=== PATIENT | female | born 2000 | race Two or more races ===

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

== ENCOUNTER 2023-06-26 17:05 | Emergency (ER) | payer SELFPAY ==
[~2023-06-26] VITALS: Ht 157.5 cm; Wt 74.2 kg
[2023-06-26 17:13] VITALS: TEMP 98.6
[2023-06-26 17:19] VITALS: BP 114/76; PULSE 76; RESP 16; O2SAT 99
[2023-06-26] MEDS: ONDANSETRON ODT 4 MG TAB PO ONE (18:26)
[2023-06-26] MEDS ORDERED: AMOX500C2 PO (20:09)
[2023-06-26] MEDS ORDERED: BENZLOZ2 MT (20:09)
[2023-06-26] MEDS ORDERED: ZOFR4T PO (20:09)
[2023-06-26] MEDS ORDERED: IBUP1TAB5 PO (20:09)
[2023-06-26] MEDS: IBUPROFEN 600 MG TAB PO ONE (20:42)
== END 2023-06-26 20:45 | disposition home or self-care (01) ==
LOC: ER 17:05
DX: R51.9 Headache, unspecified (principal); J03.90 Acute tonsillitis, unspecified
CPT/HCPCS: 70450; 99284; Q0162